=== PATIENT | female | born 1965 | race Two or more races ===

== ENCOUNTER 2022-12-11 23:33 | Emergency (ER) | payer OTHER ==
[~2022-12-11] VITALS: Ht 157.5 cm; Wt 57.6 kg
[2022-12-12] MEDS ORDERED: LEVOTHYROXINE100 MC1 (00:34)
== END 2022-12-12 02:45 | disposition home or self-care (01) ==
LOC: ER 23:33
DX: M62.838 Other muscle spasm (principal); V43.52XA Car driver injured in collision with other type car in traffic accident, initial encounter; Y93.89 Activity, other specified; Y92.413 State road as the place of occurrence of the external cause